=== PATIENT | male | born 1975 | race Caucasian/White ===

== ENCOUNTER → 2024-11-03 08:43 | Outpatient (BNVA) | payer BC, SELFPAY | PROVIDERS: PCP Family Medicine; Visit Provider Family Medicine | DX: Z13.6 Encounter for screening for cardiovascular disorders (principal) | CPT/HCPCS: 80053; 80061; 83721; 84439; 84443; 85025 ==

== ENCOUNTER → 2024-12-05 15:13 | Outpatient (BNVA) | payer BC, SELFPAY | PROVIDERS: PCP Family Medicine; Visit Provider Emergency Medicine | DX: M79.671 Pain in right foot (principal) | CPT/HCPCS: 73610; 73630 ==

== ENCOUNTER 2024-12-21 14:09 | Outpatient (RCR) | payer MEDICARE, SELFPAY | END 2024-12-29 23:59 | disposition home or self-care (01) | LOC: SPT 14:09 | PROVIDERS: PCP Family Medicine; Visit Provider Family Medicine | DX: S06.30AD Unspecified focal traumatic brain injury with loss of consciousness status unknown, subsequent encounter (principal); X58.XXXD Exposure to other specified factors, subsequent encounter | CPT/HCPCS: 97161 ==

== ENCOUNTER 2024-12-30 05:00 | Outpatient (RCR) | payer MEDICARE, SELFPAY | END 2025-01-29 23:59 | disposition home or self-care (01) | LOC: SPT 05:00 | PROVIDERS: PCP Family Medicine; Visit Provider Family Medicine | DX: S06.30AD Unspecified focal traumatic brain injury with loss of consciousness status unknown, subsequent encounter (principal); X58.XXXD Exposure to other specified factors, subsequent encounter | CPT/HCPCS: 97110; 97112; 97164 ==

== ENCOUNTER → 2025-01-26 13:09 | Outpatient (BNVA) | payer BC, SELFPAY | PROVIDERS: PCP Family Medicine; Visit Provider Emergency Medicine | DX: M25.572 Pain in left ankle and joints of left foot (principal) | CPT/HCPCS: 73610 ==

== ENCOUNTER 2025-01-27 16:40 | Outpatient (CLI) | payer BC, SELFPAY ==
--- NOTE | 2025-01-27 17:00 | USR_ITS ---
PROCEDURE INFORMATION: Exam: US Left Limited Joint or Other Non-Vascular Extremity Structure Exam date and time: 01/27/2025 4:58 PM Age: 49 years old Clinical indication: Pain; Ankle; Left; Swelling; Additional info: Weakness of dorsiflexion. Acute pain and swelling @ origin, at origin of left jakub's tendon. TECHNIQUE: Imaging protocol: US left limited joint or other nonvascular extremity structure. Real-time ultrasound with image documentation. Exam focused on the area of clinical interest. COMPARISON: CR XR ankle LT min 3V* [id number] 01/26/2025 1:14 PM FINDINGS: The areas of the patient's clinical concern in the posterior and lateral left calf was evaluated. There is soft tissue edema with no distinct mass or fluid collection. US/US soft tissue/extremity [id number] IMPRESSION: As above.
== END 2025-01-27 16:41 | disposition home or self-care (01) ==
LOC: RAD 16:44
PROVIDERS: PCP Family Medicine; Visit Provider Emergency Medicine
DX: S86.012A Strain of left Achilles tendon, initial encounter (principal); X58.XXXA Exposure to other specified factors, initial encounter
CPT/HCPCS: 76882

== ENCOUNTER 2025-01-30 05:00 | Outpatient (RCR) | payer BC, SELFPAY | END 2025-02-28 23:59 | disposition home or self-care (01) | LOC: SPT 05:00 | PROVIDERS: PCP Family Medicine; Visit Provider Family Medicine | DX: S06.30AD Unspecified focal traumatic brain injury with loss of consciousness status unknown, subsequent encounter (principal); X58.XXXD Exposure to other specified factors, subsequent encounter | CPT/HCPCS: 97110 ==

== ENCOUNTER 2025-02-28 13:21 | Outpatient (CLI) | payer BC, SELFPAY | END 2025-02-28 13:22 | disposition home or self-care (01) | LOC: SLEEP 13:21 | PROVIDERS: PCP Family Medicine; Referring Provider Family Medicine; Visit Provider Internal Medicine Pulmonary Disease | DX: G47.30 Sleep apnea, unspecified (principal) | CPT/HCPCS: G0399 ==

== ENCOUNTER 2025-03-01 05:00 | Outpatient (RCR) | payer MEDICARE, SELFPAY | END 2025-03-21 10:50 | disposition home or self-care (01) | LOC: SPT 05:00 | PROVIDERS: PCP Family Medicine; Visit Provider Family Medicine | DX: S06.30AD Unspecified focal traumatic brain injury with loss of consciousness status unknown, subsequent encounter (principal); X58.XXXD Exposure to other specified factors, subsequent encounter | CPT/HCPCS: 97110; 97164 ==

== ENCOUNTER 2025-03-15 09:36 | Outpatient (CLI) | payer BC, SELFPAY ==
--- NOTE | 2025-03-15 09:45 | FL_ITS ---
WS: [id number] FL barium swallow [id number] REASON FOR EXAM: DYSPHAGIA FLUOROSCOPY TIME: 1min [id number] # OF SPOT FILMS: 7 TECHNIQUE: The swallowing of barium was monitored fluoroscopically and recorded with multiple rapid sequence spot films. Patient was examined in the upright AP and lateral positions and in the prone PATEL position. FINDINGS: No laryngeal vestibule penetration of contrast. No aspiration. Moderate/significant persistent cricopharyngeal narrowing of the esophagus during swallowing. Infrequent intermittent tertiary contractions within the esophagus without significant retention of contrast. Small hiatal hernia with non constricting Schatzki ring and no significant reflux. 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
== END 2025-03-15 09:37 | disposition home or self-care (01) ==
LOC: RAD 09:43
PROVIDERS: Visit Provider Family Medicine
DX: R13.10 Dysphagia, unspecified (principal); K44.9 Diaphragmatic hernia without obstruction or gangrene; K22.4 Dyskinesia of esophagus
CPT/HCPCS: 74220

== ENCOUNTER 2025-03-20 13:19 | Outpatient (RCR) | payer BC, SELFPAY | END 2025-03-31 23:59 | disposition home or self-care (01) | LOC: SPT 13:19 | PROVIDERS: PCP Family Medicine; Visit Provider Podiatrist Foot & Ankle Surgery | DX: M76.62 Achilles tendinitis, left leg (principal) | CPT/HCPCS: 97110; 97161 ==

== ENCOUNTER 2025-04-01 05:00 | Outpatient (RCR) | payer BC, SELFPAY | END 2025-04-24 08:50 | disposition home or self-care (01) | LOC: SPT 05:00 | PROVIDERS: PCP Family Medicine; Visit Provider Podiatrist Foot & Ankle Surgery | DX: M76.62 Achilles tendinitis, left leg (principal) | CPT/HCPCS: 97110 ==